=== PATIENT | male | born 1965 | race Caucasian/White ===

== ENCOUNTER 2018-05-29 12:27 | Emergency (ER) | payer OTHER ==
[~2018-05-29] VITALS: Ht 175.3 cm; Wt 127.0 kg
[2018-05-29] MEDS ORDERED: COZAAR50 MG (13:12)
== END 2018-05-29 18:02 | disposition home or self-care (01) ==
LOC: ER 12:27
DX: N20.0 Calculus of kidney (principal); R10.31 Right lower quadrant pain

== ENCOUNTER 2018-12-30 09:44 | Emergency (ER) | payer OTHER ==
[~2018-12-30] VITALS: Ht 175.3 cm; Wt 127.0 kg
[~2018-12-30 09:44] MED LIST: COZAAR50 MG
== END 2018-12-30 14:58 | disposition home or self-care (01) ==
LOC: ER 09:44
DX: N20.0 Calculus of kidney (principal); R10.32 Left lower quadrant pain

== ENCOUNTER 2021-11-30 09:50 | Emergency (ER) | payer OTHER ==
[~2021-11-30] VITALS: Ht 175.3 cm; Wt 127.0 kg
[2021-11-30] MEDS ORDERED: GLIMEPIRIDE2 MG PO (10:04)
[2021-11-30] MEDS ORDERED: LOSARTAN-HCTZ1 EAC2 PO (10:04)
[2021-11-30] MEDS ORDERED: GLUMETZA500 MG PO (10:05)
[2021-11-30] MEDS ORDERED: KETO10TA2 PO (14:23)
[2021-11-30] MEDS ORDERED: NORFLEX100MG PO (14:23)
== END 2021-11-30 14:39 | disposition home or self-care (01) ==
LOC: ER 09:50
DX: S20.219A Contusion of unspecified front wall of thorax, initial encounter (principal); S60.221A Contusion of right hand, initial encounter; S30.0XXA Contusion of lower back and pelvis, initial encounter; V49.9XXA Car occupant (driver) (passenger) injured in unspecified traffic accident, initial encounter; Y93.9 Activity, unspecified; Y92.413 State road as the place of occurrence of the external cause; Y99.9 Unspecified external cause status; M54.50 Low back pain, unspecified; M54.2 Cervicalgia; E11.9 Type 2 diabetes mellitus without complications; Z79.84 Long term (current) use of oral hypoglycemic drugs; I10 Essential (primary) hypertension; Z88.8 Allergy status to other drugs, medicaments and biological substances

== ENCOUNTER 2021-12-20 05:49 | Emergency (ER) | payer OTHER ==
[~2021-12-20] VITALS: Ht 175.3 cm; Wt 127.0 kg
[~2021-12-20 05:49] MED LIST changes: +GLIMEPIRIDE2 MG PO; +GLUMETZA500 MG PO; +KETO10TA2 PO; +LOSARTAN-HCTZ1 EAC2 PO; +NORFLEX100MG PO
[2021-12-20] MEDS ORDERED: BUDESONIDE0.5 MG/21 IH (07:28)
[2021-12-20] MEDS ORDERED: OSEL75CA PO (07:28)
[2021-12-20] MEDS ORDERED: LEVALBUTER1.25 MG/3 IH (07:28)
[2021-12-20] MEDS ORDERED: ZITHROMAX200 MG PO (07:30)
[2021-12-20] MEDS ORDERED: PROAIR RESPICL90 MCG IH (07:41)
[2021-12-20] MEDS ORDERED: MUCINEX DM ER1 EAC1 PO (07:41)
[2021-12-20] MEDS ORDERED: SYMBICORT 16010.2 GM IH (07:41)
== END 2021-12-20 07:46 | disposition home or self-care (01) ==
LOC: ER 05:49
DX: J11.1 Influenza due to unidentified influenza virus with other respiratory manifestations (principal); J45.901 Unspecified asthma with (acute) exacerbation; R07.89 Other chest pain; R06.00 Dyspnea, unspecified; R05.9 Cough, unspecified; I10 Essential (primary) hypertension; E11.9 Type 2 diabetes mellitus without complications; Z79.84 Long term (current) use of oral hypoglycemic drugs; Z20.822 Contact with and (suspected) exposure to COVID-19; Z88.5 Allergy status to narcotic agent; Z88.6 Allergy status to analgesic agent

== ENCOUNTER 2022-01-23 17:12 | Emergency (ER) | payer OTHER ==
[~2022-01-23] VITALS: Ht 175.3 cm; Wt 127.0 kg
[~2022-01-23 17:12] MED LIST changes: +BUDESONIDE0.5 MG/21 IH; +LEVALBUTER1.25 MG/3 IH; +MUCINEX DM ER1 EAC1 PO; +OSEL75CA PO; +PROAIR RESPICL90 MCG IH; +SYMBICORT 16010.2 GM IH; +ZITHROMAX200 MG PO
== END 2022-01-23 22:17 | disposition home or self-care (01) ==
LOC: ER 17:12
DX: M25.512 Pain in left shoulder (principal); Z88.0 Allergy status to penicillin; Z88.8 Allergy status to other drugs, medicaments and biological substances

== ENCOUNTER 2022-06-05 12:13 | Emergency (ER) | payer OTHER ==
[~2022-06-05] VITALS: Ht 175.3 cm; Wt 129.3 kg
[2022-06-05] MEDS ORDERED: IBU800 MG PO (14:34)
== END 2022-06-05 15:02 | disposition home or self-care (01) ==
LOC: ER 12:13
DX: M79.671 Pain in right foot (principal); M77.31 Calcaneal spur, right foot; I10 Essential (primary) hypertension; E13.69 Other specified diabetes mellitus with other specified complication; J45.998 Other asthma; Z88.6 Allergy status to analgesic agent; Z88.5 Allergy status to narcotic agent

== ENCOUNTER 2022-10-03 09:56 | Emergency (ER) | payer OTHER ==
[~2022-10-03] VITALS: Ht 175.3 cm; Wt 127.0 kg
[~2022-10-03 09:56] MED LIST changes: +IBU800 MG PO
[2022-10-03] MEDS ORDERED: HYDRODIURIL12.5 MG PO (10:10)
== END 2022-10-03 16:17 | disposition home or self-care (01) ==
LOC: ER 09:56
DX: R10.11 Right upper quadrant pain (principal); N20.0 Calculus of kidney; K76.0 Fatty (change of) liver, not elsewhere classified; E11.9 Type 2 diabetes mellitus without complications; Z79.84 Long term (current) use of oral hypoglycemic drugs; I10 Essential (primary) hypertension; Z88.8 Allergy status to other drugs, medicaments and biological substances

== ENCOUNTER 2023-04-09 20:06 | Emergency (ER) | payer OTHER ==
[~2023-04-09] VITALS: Ht 175.3 cm; Wt 127.0 kg
[~2023-04-09 20:06] MED LIST changes: +HYDRODIURIL12.5 MG PO
[2023-04-09] MEDS ORDERED: KETOROLAC TROMETHAMINE 30 MG VIAL IM STA (20:45)
== END 2023-04-09 22:00 | disposition home or self-care (01) ==
LOC: ER 20:06
DX: M25.572 Pain in left ankle and joints of left foot (principal); Z88.8 Allergy status to other drugs, medicaments and biological substances

== ENCOUNTER 2023-08-26 20:37 | Emergency (ER) | payer OTHER ==
[~2023-08-26] VITALS: Ht 175.3 cm; Wt 126.1 kg
[~2023-08-26 20:37] MED LIST changes: +IPRAT-ALBUT 0.5-3 ML IH; +TUSNEL LIQUID178 ML PO; +ZITHROMAX500 MG PO
[2023-08-26 21:56] LABS: HEMATOCRIT 37.9 % (39.0-48.0); HEMOGLOBIN 13.1 g/dL (13-16.00); MEAN CELL VOLUME 89.5 fL (80.0-100.00); MEAN CORPUSCULAR HEMOGLOBIN 30.9 pg (27.00-32.0); MEAN CORPUSCULAR HGB CONC 34.5 g/dl (32.0-36.0); PLATELET COUNT 281 K/uL (150-450); RED BLOOD COUNT 4.23 M/uL (4.00-6.00); RED CELL DISTRIBUTION WIDTH 15.2 % (11.5-14.5)
[2023-08-26] MEDS ORDERED: KETOROLAC TROMETHAMINE 30 MG VIAL IM ONE (22:15)
[2023-08-26 22:26] LABS: CREATININE SERUM 1.2 mg/dL (0.70-1.30); GFR 61.76; POTASSIUM 3.13 mEq/L (3.5-5.1)
[2023-08-26 22:44] LABS: ABG PH 7.431 (7.35-7.45); ABG PO2 94.8 mmHg (80-100); ABG pCO2 46.7 mmHg (35-45); BASE EXCESS 5.2 mmol/l; BICARBONATE 30.4 mmol/l (23-25); SaO2 97.7 %; Tco2 31.8 mmol/l; allen test SATISFACTORY; o2 21 %; puncture site RADIAL RIGHT
[2023-08-27] MEDS ORDERED: ENOXAPARIN SODIUM 100 MG/ML SYRINGE SUBCUTANEO STA (02:12)
[2023-08-27] MEDS ORDERED: MEPERIDINE HCL/PF 50 MG/ML VIAL IM STA (02:15)
[2023-08-27] MEDS ORDERED: ENOXAPARIN SODIUM 60 MG/0.6 ML SYRINGE SUBCUTANEO STA (02:15)
[2023-08-27 02:59] LABS: INR < 0.93; PARTIAL THROMBOPLASTIN TIME 24.2 SECONDS (22.0-34.0); PROTHROMBIN TIME 9.8 SECONDS (9.0-11.5)
[2023-08-27] MEDS ORDERED: KETOROLAC TROMETHAMINE 60 MG VIAL IM STA (12:43)
== END 2023-08-27 12:58 | disposition home or self-care (01) ==
LOC: ER 20:38
PROVIDERS: General Practice
DX: M79.662 Pain in left lower leg (principal); E11.9 Type 2 diabetes mellitus without complications; Z79.84 Long term (current) use of oral hypoglycemic drugs; I10 Essential (primary) hypertension; Z88.8 Allergy status to other drugs, medicaments and biological substances